=== PATIENT | female | born 1995 | race Two or more races ===

== ENCOUNTER 2019-03-16 01:34 | Emergency (ER) | payer SELFPAY ==
[~2019-03-16] VITALS: Ht 160 cm; Wt 49.9 kg
[2019-03-16 01:41] VITALS: Ht 160 cm; Wt 49.9 kg
[2019-03-16 03:41] VITALS: BP 121/78
== END 2019-03-16 03:41 | disposition home or self-care (01) ==
LOC: ED 01:34
DX: S09.8XXA Other specified injuries of head, initial encounter (principal); S30.0XXA Contusion of lower back and pelvis, initial encounter; R11.2 Nausea with vomiting, unspecified; F17.210 Nicotine dependence, cigarettes, uncomplicated; W01.0XXA Fall on same level from slipping, tripping and stumbling without subsequent striking against object, initial encounter; Y93.89 Activity, other specified; Y92.89 Other specified places as the place of occurrence of the external cause; Y99.8 Other external cause status
CPT/HCPCS: 99406; Q0162